=== PATIENT | male | born 1955 | race Caucasian/White ===

== ENCOUNTER 2020-09-07 09:13 | Outpatient (CLI) | payer MEDICARE, BC, SELFPAY ==
--- NOTE | 2020-09-07 09:17 | USCV_ITS ---
Jose D Shade Age: 65 Gender: M : 1955 Exam Date: 09/07/2020 09:25 Ordering Phys: Layo Caraballo DO Technologist: Kellie Dickson Exam Location: [facility] – [place] Indication: stenosis Risk Factors: Previous Vascular Surgery: Right Brachial BP: / Left Brachial BP: / Right Left Velocity (cm/s) Spectral Plaque Velocity (cm/s) Spectral Plaque Syst/Diast Broadening Syst/Diast Broadening 72.40/ 21.90 Prox CCA 87.60 / 16.60 80.70/ 6.00 Mid CCA 80.30 / 20.30 81.60/ 19.70 Distal CCA 85.60 / 25.70 58.80/ 14.70 Prox ICA 39.70 / 16.80 34.30/ 14.70 Mid ICA 50.50 / 15.20 46.90/ 23.80 Distal ICA 56.00 / 21.30 80.50 ECA 88.10 0.73 ICA/CCA 0.70 Antegrade Vertebral Antegrade 37.10/ 11.20 cm/s 39.50/ 10.90 cm/s Tri Subclavian Tri 56.70 129.5 0 CONCLUSIONS Right ICA stenosis <50%. Left ICA stenosis <50%. Normal antegrade Doppler flow noted in the right vertebral artery. Normal antegrade Doppler flow noted in the left vertebral artery. Lopez Bellamy MD (Electronically Signed) Final Date: 07 September 2020 12:06 S
== END 2020-09-07 09:14 | disposition home or self-care (01) ==
LOC: US 09:15
PROVIDERS: PCP Electrodiagnostic Medicine; Visit Provider Electrodiagnostic Medicine
DX: I65.23 Occlusion and stenosis of bilateral carotid arteries (principal)
CPT/HCPCS: 93880

== ENCOUNTER 2020-09-27 14:10 | Outpatient (CLI) | payer MEDICARE, BC, SELFPAY ==
--- NOTE | 2020-09-27 14:27 | XR_ITS ---
WS: [id number] ABDOMEN Supine view of the abdomen CLINICAL INFORMATION: LEFT BACK PAIN COMPARISON: None. FINDINGS: Mild fecal retention in the colon. No evidence of high-grade small or large bowel obstruction. Pelvic phleboliths. No visualized renal parenchymal or ureteral calculi. XR/XR abdomen 1V* [id number] IMPRESSION: No acute abdominal findings
== END 2020-09-27 14:11 | disposition home or self-care (01) ==
LOC: RADWPI 14:17
PROVIDERS: PCP Electrodiagnostic Medicine; Visit Provider Electrodiagnostic Medicine
DX: M54.9 Dorsalgia, unspecified (principal)
CPT/HCPCS: 74018

== ENCOUNTER 2021-01-11 09:30 | Outpatient (CLI) | payer MEDICARE, BC, SELFPAY ==
--- NOTE | 2021-01-11 09:50 | XRR_ITS ---
PROCEDURE INFORMATION: Exam: XR Right Shoulder Exam date and time: 01/11/2021 9:54 AM Age: 65 years old Clinical indication: Pain and condition or disease; Other: R rotator cuff syndrome; Shoulder; Right; Additional info: R rotator cuff syndrome/chronic R shoudler pain TECHNIQUE: Imaging protocol: XR Right shoulder. Views: 2 or more views. COMPARISON: No relevant prior studies available. FINDINGS: Bones/joints: Visualized portions of the clavicle normal. Mild degenerative changes of the acromioclavicular joint. Glenohumeral joint normal Scapula normal Visualized ribs and visualized pulmonary parenchyma normal Coracoid process normal Soft tissues: Normal. XR/XR shoulder RT min 2V* [id number] IMPRESSION: Mild degenerative changes of the acromioclavicular joint.
== END 2021-01-11 09:31 | disposition home or self-care (01) ==
PROVIDERS: PCP Electrodiagnostic Medicine; Visit Provider Electrodiagnostic Medicine
DX: M75.101 Unspecified rotator cuff tear or rupture of right shoulder, not specified as traumatic (principal); M25.511 Pain in right shoulder
CPT/HCPCS: 73030

== ENCOUNTER 2021-03-08 14:55 | Outpatient (CLI) | payer MEDICARE, BC, SELFPAY ==
--- NOTE | 2021-03-08 16:00 | MR_ITS ---
WS: [id number] MRI RIGHT SHOULDER HISTORY: ROTATOR CUFF SYNDROME, RIGHT COMPARISON: Radiograph 01/11/2021 TECHNIQUE: Multiplanar sequences of the shoulder joint are submitted. Moderate AC joint arthritis. Joint space narrowing with loss of the normal cortex of the distal clavi linda and adjacent acromion. Thickening of the joint capsule with increased T2 signal through the AC li gament. Small amount of subacromial and subdeltoid fluid. Osteophyte and hypertrophic changes of the AC joint encroach upon the supraspinatus muscle and tendon. No os acromion. Biceps tendon is in nadira l position with slight increased amount of fluid LEFT within the tendon sheath. Complete tear of the distal supraspinatus tendon. Thinning of the tendon with retraction to the super ior humeral head. Full-thickness tear of the supraspinatus. No significant atrophy of the supraspinat us muscle. There is an additional moderate-sized insertion site tear of the infraspinatus tendon. No retraction of the infraspinatus. Subscapularis tendon is intact. Moderate degenerative surrounding th e humeral head. Loss of the normal cartilage. Abnormal signal and shape of the inferior labrum. There is intrasubstance degeneration in the superior and posterior labrum. MR/MR shoulder RT wo con* [id number] IMPRESSION: 1. Complete tear with retraction of the supraspinatus tendon to the superior h umeral head. No atrophy of the supraspinatus muscle. 2. Insertion site tear of the infraspinatus tendon without retraction or muscl e atrophy. 3. 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 4. Abnormal signal in a large portion of the labrum consistent with intrasubst ance degeneration and likely tears, especially involving the inferior labrum.
== END 2021-03-08 14:56 | disposition home or self-care (01) ==
PROVIDERS: PCP Electrodiagnostic Medicine; Visit Provider Electrodiagnostic Medicine
DX: M75.121 Complete rotator cuff tear or rupture of right shoulder, not specified as traumatic (principal); M13.811 Other specified arthritis, right shoulder; S46.811A Strain of other muscles, fascia and tendons at shoulder and upper arm level, right arm, initial encounter; X58.XXXA Exposure to other specified factors, initial encounter
CPT/HCPCS: 73221

== ENCOUNTER 2021-06-07 07:30 | Outpatient (RCR) | payer MEDICARE, OTHER, SELFPAY | END 2021-06-23 23:59 | disposition home or self-care (01) | LOC: SPT 07:30 | PROVIDERS: PCP Electrodiagnostic Medicine; Referring Provider Orthopaedic Surgery; Visit Provider Orthopaedic Surgery | DX: S46.001D Unspecified injury of muscle(s) and tendon(s) of the rotator cuff of right shoulder, subsequent encounter (principal); X58.XXXD Exposure to other specified factors, subsequent encounter | CPT/HCPCS: 97110; 97140; 97161 ==

== ENCOUNTER 2021-06-24 06:00 | Outpatient (RCR) | payer MEDICARE, OTHER, SELFPAY | END 2021-07-24 23:59 | disposition home or self-care (01) | LOC: SPT 06:00 | PROVIDERS: PCP Electrodiagnostic Medicine; Referring Provider Orthopaedic Surgery; Visit Provider Orthopaedic Surgery | DX: S46.019D Strain of muscle(s) and tendon(s) of the rotator cuff of unspecified shoulder, subsequent encounter (principal); X58.XXXD Exposure to other specified factors, subsequent encounter | CPT/HCPCS: 97110 ==

== ENCOUNTER 2021-07-25 06:00 | Outpatient (RCR) | payer MEDICARE, OTHER, SELFPAY | END 2021-08-23 23:59 | disposition home or self-care (01) | LOC: SPT 06:00 | PROVIDERS: PCP Electrodiagnostic Medicine; Referring Provider Orthopaedic Surgery; Visit Provider Orthopaedic Surgery | DX: S46.091D Other injury of muscle(s) and tendon(s) of the rotator cuff of right shoulder, subsequent encounter; Z98.890 Other specified postprocedural states; X58.XXXD Exposure to other specified factors, subsequent encounter | CPT/HCPCS: 97110 ==

== ENCOUNTER 2022-05-10 07:32 | Outpatient (RCR) | payer MEDICARE, OTHER, SELFPAY | END 2022-05-24 23:59 | disposition home or self-care (01) | LOC: SPT 07:32 | PROVIDERS: PCP Electrodiagnostic Medicine; Referring Provider Electrodiagnostic Medicine; Visit Provider Electrodiagnostic Medicine | DX: I89.0 Lymphedema, not elsewhere classified (principal) | CPT/HCPCS: 97110; 97140; 97162 ==

== ENCOUNTER 2022-05-25 06:00 | Outpatient (RCR) | payer MEDICARE, OTHER, SELFPAY | END 2022-06-23 23:59 | disposition home or self-care (01) | LOC: SPT 06:00 | PROVIDERS: PCP Electrodiagnostic Medicine; Referring Provider Electrodiagnostic Medicine; Visit Provider Electrodiagnostic Medicine | DX: I89.0 Lymphedema, not elsewhere classified (principal) | CPT/HCPCS: 97110; 97140 ==

== ENCOUNTER 2022-06-24 06:00 | Outpatient (RCR) | payer MEDICARE, OTHER, SELFPAY | END 2022-07-24 23:59 | disposition home or self-care (01) | LOC: SPT 06:00 | PROVIDERS: PCP Electrodiagnostic Medicine; Referring Provider Electrodiagnostic Medicine; Visit Provider Electrodiagnostic Medicine | DX: I89.0 Lymphedema, not elsewhere classified (principal) | CPT/HCPCS: 97110 ==